=== PATIENT | male | born 1990 | race Caucasian/White ===

== ENCOUNTER 2021-08-09 11:43 | Emergency (ER) | payer BC ==
[~2021-08-09] VITALS: Ht 177.8 cm; Wt 74.8 kg
[2021-08-09] MEDS ORDERED: DICLOFENAC POTA50 MG PO (16:53)
== END 2021-08-09 17:07 | disposition home or self-care (01) ==
LOC: ER 11:43
DX: S93.492A Sprain of other ligament of left ankle, initial encounter (principal); X50.0XXA Overexertion from strenuous movement or load, initial encounter; Y93.02 Activity, running; Y92.830 Public park as the place of occurrence of the external cause; Y99.8 Other external cause status

== ENCOUNTER 2022-01-22 13:17 | Emergency (ER) | payer BC ==
[~2022-01-22] VITALS: Ht 177.8 cm; Wt 74.8 kg
[~2022-01-22 13:17] MED LIST: DICLOFENAC POTA50 MG PO
== END 2022-01-22 17:30 | disposition home or self-care (01) ==
LOC: ER 13:17
DX: S61.213A Laceration without foreign body of left middle finger without damage to nail, initial encounter (principal); W26.0XXA Contact with knife, initial encounter; Y93.9 Activity, unspecified; Y92.009 Unspecified place in unspecified non-institutional (private) residence as the place of occurrence of the external cause; Y99.9 Unspecified external cause status